=== PATIENT | female | born 1965 | race Two or more races ===

== ENCOUNTER 2024-08-14 07:15 | Outpatient (CLI) | payer OTHER | END 2024-08-14 07:19 | disposition home or self-care (01) | LOC: NUCLEAR 07:15 | PROVIDERS: ATTEND Surgery | DX: C50.412 Malignant neoplasm of upper-outer quadrant of left female breast (principal) ==

== ENCOUNTER 2024-09-02 11:11 | Outpatient (CLI) | payer OTHER | END 2024-09-02 11:57 | disposition home or self-care (01) | LOC: SONOGRAMA 11:11 | PROVIDERS: ATTEND Surgery | DX: E04.1 Nontoxic single thyroid nodule (principal) ==

== ENCOUNTER 2024-09-12 06:15 | Day surgery (SDC) | payer OTHER ==
[2024-09-11 14:17] VITALS: BP 144/86
[~2024-09-12] VITALS: Ht 165.1 cm; Wt 80.3 kg
[2024-09-12] MEDS ORDERED: CLINDAMYCIN PHOSPHATE 150 MG/ML (900mg) ONE (08:39)
[2024-09-12] MEDS ORDERED: GENTAMICIN SULFATE 40 MG/ML VIAL ONE ×2 (16:37→19:15)
[2024-09-12] MEDS ORDERED: CEFAZOLIN SODIUM 1,000 MG VIAL ONE ×2 (16:38→19:16)
[2024-09-12] MEDS ORDERED: POVIDONE-IODINE 118 ML BOTT TOP ONE ×2 (16:38→19:17)
[2024-09-12] MEDS ORDERED: POVIDONE-IODINE SCRUB 118 ML BOTT TOP ONE ×2 (16:38→19:16)
[2024-09-12] MEDS ORDERED: CLINDAMYCIN PHOSPHATE 150 MG/ML (900mg) IV ONE (21:00)
[2024-09-12] MEDS ORDERED: MORPHINE SULFATE 4 MG/ML VIAL IV ONE ×2 (21:55→22:25)
== END 2024-09-13 | disposition home or self-care (01) ==
LOC: CIR.AMB 06:15
PROVIDERS: ATTEND Surgery
DX: C50.412 Malignant neoplasm of upper-outer quadrant of left female breast (principal); R59.0 Localized enlarged lymph nodes; Z91.02 Food additives allergy status; Z91.040 Latex allergy status; M19.90 Unspecified osteoarthritis, unspecified site; M51.26 Other intervertebral disc displacement, lumbar region

== ENCOUNTER 2024-10-14 13:13 | Outpatient (CLI) | payer OTHER | END 2024-10-14 14:08 | disposition home or self-care (01) | LOC: SONOGRAMA 13:13 | PROVIDERS: ATTEND Internal Medicine | DX: I10 Essential (primary) hypertension (principal); M67.51 Plica syndrome, right knee; C50.412 Malignant neoplasm of upper-outer quadrant of left female breast; M75.01 Adhesive capsulitis of right shoulder; S83.200A Bucket-handle tear of unspecified meniscus, current injury, right knee, initial encounter; X58.XXXA Exposure to other specified factors, initial encounter; Y93.9 Activity, unspecified; Y92.9 Unspecified place or not applicable; Y99.9 Unspecified external cause status ==

== ENCOUNTER 2025-01-26 12:50 | Outpatient (CLI) | payer OTHER | END 2025-01-26 12:53 | disposition home or self-care (01) | LOC: RAD 12:50 | PROVIDERS: ATTEND Orthopaedic Surgery | DX: R07.9 Chest pain, unspecified (principal) ==

== ENCOUNTER 2025-02-03 12:45 | Outpatient (CLI) | payer OTHER | END 2025-02-03 13:08 | disposition home or self-care (01) | LOC: SONOGRAMA 12:45 | PROVIDERS: ATTEND Student in an Organized Health Care Education/Training Program | DX: M25.512 Pain in left shoulder (principal); M75.112 Incomplete rotator cuff tear or rupture of left shoulder, not specified as traumatic; M54.50 Low back pain, unspecified; M51.360 Other intervertebral disc degeneration, lumbar region with discogenic back pain only ==

== ENCOUNTER 2025-03-26 08:12 | Outpatient (CLI) | payer OTHER | END 2025-03-26 08:14 | disposition home or self-care (01) | LOC: TOM 08:12 | PROVIDERS: ATTEND Plastic Surgery | DX: K43.9 Ventral hernia without obstruction or gangrene (principal); K42.9 Umbilical hernia without obstruction or gangrene ==

== ENCOUNTER 2025-05-05 11:33 | Outpatient (CLI) | payer OTHER | END 2025-05-05 11:39 | disposition home or self-care (01) | LOC: MAMO-SONO 11:33 | PROVIDERS: ATTEND Internal Medicine | DX: M25.561 Pain in right knee (principal); M17.11 Unilateral primary osteoarthritis, right knee; C50.812 Malignant neoplasm of overlapping sites of left female breast; N63.11 Unspecified lump in the right breast, upper outer quadrant; N63.12 Unspecified lump in the right breast, upper inner quadrant; N63.22 Unspecified lump in the left breast, upper inner quadrant; N63.21 Unspecified lump in the left breast, upper outer quadrant; N63.32 Unspecified lump in axillary tail of the left breast; N63.31 Unspecified lump in axillary tail of the right breast; N63.13 Unspecified lump in the right breast, lower outer quadrant; N63.14 Unspecified lump in the right breast, lower inner quadrant; N63.24 Unspecified lump in the left breast, lower inner quadrant; N63.23 Unspecified lump in the left breast, lower outer quadrant ==